=== PATIENT | female | born 1940 | race Caucasian/White ===

== ENCOUNTER 2021-11-14 11:18 | Inpatient (IN) | payer MEDICARE, OTHER ==
[~2021-11-14] VITALS: Ht 152.4 cm; Wt 75.0 kg
[~2021-11-14 11:18] MED LIST: ATEN25TA PO; CALC-793 PO; DOCU-28 PO; HYDR-3972 PO; IBUP-2417 PO; LEVO50TA8 PO; LOSA50TA3 PO; OMEP40CA21 PO; VITA400C21 PO; [UNRECOGNIZED DRUG - CODE] PO
[2021-11-14 12:55] LABS: BASOPHILS # (AUTO) 0.1 X10'3 (0-0.2); BASOPHILS % (AUTO) 0.7 % (0-1); EOSINOPHILS # (AUTO) 0.1 X10'3 (0-0.9); EOSINOPHILS % (AUTO) 1.4 % (0-6); HEMATOCRIT 42.8 % (35.0-45.0); HEMOGLOBIN 14.4 g/dl (12.0-16.0); LYMPHOCYTES # (AUTO) 1.9 X10'3 (1.1-4.8); LYMPHOCYTES % (AUTO) 20.5 % (21-51); MEAN CORPUSCULAR HEMOGLOBIN 30.1 PG (27.0-31.0); MEAN CORPUSCULAR HGB CONC 33.7 g/dL (33.0-36.5); MEAN CORPUSCULAR VOLUME 89.3 FL (78-98); MEAN PLATELET VOLUME 9.4 FL (7.4-10.4); MONOCYTES # (AUTO) 0.6 X10'3 (0-0.9); MONOCYTES % (AUTO) 6.4 % (2-12); NEUTROPHILS # (AUTO) 6.6 X10'3 (1.8-7.7); PLATELET COUNT 277 X10'3 (140-440); RED BLOOD COUNT 4.79 X10'6 (4.20-5.60); RED CELL DISTRIBUTION WIDTH 13.8 % (11.5-14.5); WHITE BLOOD COUNT 9.2 X10'3 (4.5-11.0)
[2021-11-14 13:01] LABS: ALANINE AMINOTRANSFERASE 24 U/L (12-78); ALBUMIN 3.4 G/DL (3.4-5.0); ALKALINE PHOSPHATASE 61 IU/L (46-116); ANION GAP 8 (8-16); ASPARTATE AMINO TRANSFERASE 22 U/L (10-37); BILIRUBIN,TOTAL 0.3 MG/DL (0.1-1.0); BLOOD UREA NITROGEN 14 MG/DL (7-18); BUN/CREATININE RATIO 16.3 (6.6-38.0); CALCIUM 9.4 MG/DL (8.5-10.1); CHLORIDE 103 MMOL/L (99-107); CREATININE 0.86 MG/DL (0.40-0.90); GLUCOSE 117 MG/DL (70-104); POTASSIUM 3.9 MMOL/L (3.5-5.1); SODIUM 141 MMOL/L (135-145); TOTAL CARBON DIOXIDE 29.7 MMOL/L (24-32); TOTAL PROTEIN 6.9 G/DL (6.4-8.2); eGFR 63 ML/MIN
[2021-11-14 13:16] LABS: CLARITY,URINE CLEAR (Clear); COLOR,URINE YELLOW (Yellow); GLUCOSE, URINE NEGATIVE (Neg); KETONES,URINE NEGATIVE (Neg); LEUKOCYTE ESTERASE ,URINE NEGATIVE (Neg); NITRITES, URINE NEGATIVE (Neg); OCCULT BLOOD,URINE TRACE-INTACT (Neg); PH,URINE 6.5 (4.8-8.0); PROTEIN,URINE NEGATIVE (Neg); UROBILINOGEN,URINE 0.2 E.U/dL (0.2-1.0)
[2021-11-14 13:20] LABS: UA COLLECTION TYPE NON-SPECIFIED; WBC,URINE NONE SEEN /HPF (0-4)
--- NOTE | 2021-11-14 13:20 | NUR ---
Patient given warm blanket; resting quietly.
[2021-11-14 13:21] LABS: BACTERIA,URINE NONE SEEN /HPF (Neg); MUCUS STRANDS FEW /LPF (Neg); RBC,URINE NONE SEEN /HPF (0-2); SQUAMOUS EPITHELIAL CELL,UR FEW /LPF (FEW)
[2021-11-14] MEDS ORDERED: HYDROcodone/acetaminophen 5mg/325mg tablet PO PRN (19:45)
[2021-11-14] MEDS ORDERED: potassium Cl 20 mEq SR tablet PO PRN ×2 (19:45)
[2021-11-14] MEDS ORDERED: bisacodyl 10mg suppository rectal RC PRN (19:45)
[2021-11-14] MEDS ORDERED: PERFLUTREN PROTEIN-A MICROSPHR (Optison) 0.22 MG/ML 3ML VIAL IV PRN (19:45)
[2021-11-14] MEDS ORDERED: magnesium 4gm in 100ml NS 100 ML IV PRN (19:45)
[2021-11-14] MEDS ORDERED: HYDROcodone/acetaminophen 10/325mg tab PO PRN (19:45)
[2021-11-14] MEDS ORDERED: potassium CL 10mEq/100ml bag 100 ML IV PRN (19:45)
[2021-11-14] MEDS ORDERED: ondansetron/PF 4mg/2ml inj IV PRN (19:45)
[2021-11-14] MEDS ORDERED: aspirin 325mg tablet PO ONE (19:45)
[2021-11-14] MEDS ORDERED: acetaminophen 325mg tablet PO PRN ×2 (19:45)
[2021-11-14] MEDS ORDERED: magnesium 2GM in 50ml NS 50 ML IV PRN (19:45)
[2021-11-14] MEDS ORDERED: morphine 2 MG/ML inj. syringe IV PRN ×2 (19:45)
[2021-11-14] MEDS ORDERED: mag hydrox/Alum hydrox/simeth 30ml oral suspension PO PRN (19:45)
[2021-11-14] MEDS ORDERED: magnesium hydroxide 30ml (MOM) UD suspension PO PRN (19:45)
[2021-11-14] MEDS ORDERED: acetaminophen 650mg rectal suppository RC PRN (19:45)
[2021-11-14] MEDS ORDERED: diphenhydrAMINE 25mg capsule PO PRN (19:45)
[2021-11-14] MEDS ORDERED: magnesium Cl slow-release 64mg tablet PO PRN (19:45)
[2021-11-14] MEDS ORDERED: OMEP40CA21 PO (19:51)
[2021-11-14] MEDS ORDERED: LEVO75TA7 PO (19:51)
[2021-11-14] MEDS ORDERED: LOSA50TA64 PO (19:51)
[2021-11-14] MEDS: K and/or MAG REPLACEMENT MC SCH (20:00)
[2021-11-14] MEDS: heparin, porcine 5000 units/ml vial SQ SCH (20:00)
[2021-11-14 20:11] LABS: HEMOGLOBIN A1C 5.5 % (4.5-6.2)
[2021-11-14 20:20] LABS: CHOLESTEROL 216 MG/DL (0-200); HDL CHOLESTEROL 36 MG/DL (35-60); LDL CHOLESTEROL 135 MG/DL (50-100); TRIGLYCERIDES 197 MG/DL (20-135)
[2021-11-14] MEDS: atorvastatin 20mg tablet PO SCH (22:13)
[2021-11-14] MEDS: docusate sod 100mg capsule PO SCH (22:14)
[2021-11-14] MEDS: normal saline 1000ml 1,000 ML IV SCH (22:14)
[2021-11-14] MEDS ORDERED: pantoprazole 40mg Tablet.DR PO SCH (23:45)
[2021-11-15] MEDS: normal saline 1000ml 1,000 ML IV SCH (05:45)
[2021-11-15 07:53] LABS: BASOPHILS # (AUTO) 0.1 X10'3 (0-0.2); EOSINOPHILS # (AUTO) 0.4 X10'3 (0-0.9); EOSINOPHILS % (AUTO) 3.6 % (0-6); HEMOGLOBIN 13.6 g/dl (12.0-16.0); LYMPHOCYTES # (AUTO) 2.3 X10'3 (1.1-4.8); LYMPHOCYTES % (AUTO) 20.2 % (21-51); MEAN CORPUSCULAR HEMOGLOBIN 29.6 PG (27.0-31.0); MEAN CORPUSCULAR HGB CONC 33.1 g/dL (33.0-36.5); MEAN CORPUSCULAR VOLUME 89.5 FL (78-98); MONOCYTES # (AUTO) 0.9 X10'3 (0-0.9); MONOCYTES % (AUTO) 8.1 % (2-12); NEUTROPHILS # (AUTO) 7.6 X10'3 (1.8-7.7); NEUTROPHILS % (AUTO) 67.1 % (42-75); PLATELET COUNT 246 X10'3 (140-440); RED BLOOD COUNT 4.58 X10'6 (4.20-5.60); RED CELL DISTRIBUTION WIDTH 13.7 % (11.5-14.5); WHITE BLOOD COUNT 11.3 X10'3 (4.5-11.0)
[2021-11-15] MEDS: K and/or MAG REPLACEMENT MC SCH (08:00)
[2021-11-15] MEDS ORDERED: losartan 50mg tablet PO SCH (08:00)
[2021-11-15] MEDS: heparin, porcine 5000 units/ml vial SQ SCH (08:00)
[2021-11-15] MEDS ORDERED: levoTHYROXINE 75mcg tablet PO SCH (08:00)
[2021-11-15] MEDS ORDERED: aspirin 81mg, enteric-coated 1 TAB TABLET.DR PO SCH (08:00)
[2021-11-15] MEDS: atorvastatin 20mg tablet PO SCH (08:13)
[2021-11-15] MEDS: docusate sod 100mg capsule PO SCH (08:13)
[2021-11-15 08:14] LABS: ALANINE AMINOTRANSFERASE 19 U/L (12-78); ALBUMIN 2.9 G/DL (3.4-5.0); ALBUMIN/GLOBULIN RATIO 0.9 (1.1-1.5); ALKALINE PHOSPHATASE 55 IU/L (46-116); ANION GAP 7 (8-16); ASPARTATE AMINO TRANSFERASE 17 U/L (10-37); BILIRUBIN,TOTAL 0.6 MG/DL (0.1-1.0); BLOOD UREA NITROGEN 11 MG/DL (7-18); BUN/CREATININE RATIO 13.3 (6.6-38.0); CALCIUM 8.7 MG/DL (8.5-10.1); CHLORIDE 108 MMOL/L (99-107); CREATININE 0.83 MG/DL (0.40-0.90); GLUCOSE 106 MG/DL (70-104); PHOSPHORUS 3.5 MG/DL (2.3-4.5); POTASSIUM 3.7 MMOL/L (3.5-5.1); SODIUM 143 MMOL/L (135-145); TOTAL CARBON DIOXIDE 28.3 MMOL/L (24-32); TOTAL PROTEIN 6.1 G/DL (6.4-8.2); eGFR 66 ML/MIN
[2021-11-15 11:00] VITALS: BP 146/89
[2021-11-15] MEDS ORDERED: RIVA20TA PO (14:41)
[2021-11-15] MEDS ORDERED: METO-395 PO (14:41)
[2021-11-15] MEDS ORDERED: ATOR20TA66 PO (14:41)
[2021-11-15] MEDS ORDERED: ASPI-1071 PO (14:41)
[2021-11-15] MEDS ORDERED: rivaroxaban 20mg tablet PO SCH (15:38)
== END 2021-11-15 16:15 | disposition home or self-care (01) | DRG 309 ==
LOC: ER 11:19 → ED HOLD 19:48
PROVIDERS: ADMIT Family Medicine; ATTEND Family Medicine
DX: R00.2 Palpitations (principal); I69.354 Hemiplegia and hemiparesis following cerebral infarction affecting left non-dominant side; E03.9 Hypothyroidism, unspecified; I10 Essential (primary) hypertension; I48.91 Unspecified atrial fibrillation; Z20.822 Contact with and (suspected) exposure to COVID-19; R29.703 NIHSS score 3; E05.90 Thyrotoxicosis, unspecified without thyrotoxic crisis or storm; G89.29 Other chronic pain; R07.89 Other chest pain; K21.9 Gastro-esophageal reflux disease without esophagitis; Z79.890 Hormone replacement therapy; Z79.899 Other long term (current) drug therapy; Z82.49 Family history of ischemic heart disease and other diseases of the circulatory system; Z90.710 Acquired absence of both cervix and uterus; Z79.82 Long term (current) use of aspirin; Z90.49 Acquired absence of other specified parts of digestive tract
CPT/HCPCS: 36415; 70450; 70544; 70551; 71045; 80053; 80061; 81001; 83036; 83735; 84100; 84443; 84484; 85025; 85651; 87635; 93005; 93306; 93880; 99285; C9803; G0378; J7030

== ENCOUNTER 2025-10-10 23:02 | Inpatient (IN) | payer MEDICARE, OTHER ==
[~2025-10-10] VITALS: Ht 152.4 cm; Wt 61.4 kg
[~2025-10-10 23:02] MED LIST changes: +AMLO10TA PO; +ASPI-1071 PO; -ATEN25TA PO; +Balance of Nature OP; -DOCU-28 PO; +GLUC-212 OP; -HYDR-3972 PO; -IBUP-2417 PO; -LEVO50TA8 PO; +LEVO75TA7 PO; +LOP12.5T PO; +LOSA-416 PO; -LOSA50TA3 PO; +MAGN500C4 PO; +NITR0.4T51 SL; -OMEP40CA21 PO; +PANT40TA54 PO; +ROSU20TA98 PO; +UBID50TA3 PO; +ZINC220T3 PO; -[UNRECOGNIZED DRUG - CODE] PO; +[UNRECOGNIZED DRUG - OTHER] PO; +tumeric OP
--- NOTE | 2025-10-10 23:14 | ELECTROCARDIOGRAPH REPORT ---
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 Zahra Javier Measurements Intervals [place] Rate: 97 P: 50 AL: 141 QRS: 10 QRSD: 77 T: 3 QT: 446 QTc: 567 Interpretive Statements Sinus rhythm Low voltage, precordial leads Consider anterior infarct Prolonged QT interval Baseline wander in lead(s) V6 Electronically Signed On 10-11-2025 1:27:[address] Zahra Javier Please click the below link to view image of tracing.
[2025-10-10 23:28] LABS: MEAN PLATELET VOLUME 8.8 FL (7.4-10.4); RED CELL DISTRIBUTION WIDTH 13.7 % (11.5-14.5)
[2025-10-10 23:41] LABS: CREATININE 0.84 MG/DL (0.40-0.90); TOTAL CARBON DIOXIDE 29.9 MMOL/L (24-32); eCRCL 34 ML/MIN; eGFR 64 ML/MIN
--- NOTE | 2025-10-10 23:44 | RADIOLOGY REPORT ---
CHEST RADIOGRAPH Indication: CP Technique: Single frontal view of the chest was obtained COMPARISON: DI CHEST,SINGLE VIEW on DOS: 03/02/25, CHEST,SINGLE VIEW on DOS: 11/14/21 FINDINGS: Lungs and pleural spaces are clear. Cardiac silhouette and gaston are within normal limits. Bones and soft tissues demonstrate no significant abnormality apart from a small to moderate hiatal hernia. IMPRESSION: No acute disease.
[2025-10-10 23:49] LABS: PRO BRAIN NATRIURETIC PEPTIDE 382 PG/ML (0-450)
[2025-10-11] VITALS (15 sets, daily range): BP systolic 110–163; BP diastolic 59–104; PULSE 62–96; RESP 11–18; TEMP 97–97.8; O2SAT 95–98
--- NOTE | 2025-10-11 00:40 | Physician Documentation ---
History of Present Illness ~ Chief Complaint: Chest Pain Stated Complaint: Chest Pain Time Seen by MD: 23:05 OK to notify your PCP?: Yes Primary Medical Doctor: None Source: patient, RN/MD, EMS, RN notes reviewed, EMS notes reviewed, old records Mode of Arrival: EMS Exam Limitations: no limitations HPI This pleasant patient woke up with some chest pain this morning over 12 hours ago feels like there is some pressure in the abdomen area chest area feels like she has been punched in the back. There is chest pain. She took nitroglycerin at the end of the day and her pain improved. She recently had multiple nosebleeds approximately three weeks ago and has stopped her anticoagulation. Patient was last admitted on 03/02 to 424 chest pain due to GERD. Patient had an extensive workup. She also has multiple risk factors. She has hyperlipidemia hypertension coronary artery disease status post cardiac stent in 2022 GERD currently patient is complaining of increasing fatigue and weakness as of late. During her last workup her Lexiscan revealed a fixed defect without any evidence of stress-induced ischemia she was given PPIs and was discharged to follow up with Dr. Cisneros for which she was compliant in later had her anticoagulation discontinued secondary to nosebleeds. Her last echocardiogram shows an ejection fraction of 65% on 02/2025 Medication Reconciliation Allergies: Coded Allergies: colchicine (Verified Allergy, Intermediate, 10/10/25) Penicillins (Verified Allergy, Mild, 10/10/25) Sulfa (Sulfonamide Antibiotics) (Verified Allergy, Mild, 10/10/25) Scheduled Amlodipine Besylate (Amlodipine Besylate), 1 TABLET PO DAILY Aspirin (Ecotrin*), 1 TAB PO DAILY Calcium Carbonate/Vitamin D3 (Vitamin D3 5,000 Unit Tablet), 1 TABLET PO DAILY, (Reported) Glucosam/Chondroit/C/Manganese (Cosamin Ds Capsule), 3 CAP OP DAILY, (Reported) Levothyroxine Sodium (Levothyroxine Sodium), 1 TAB PO DAILY, (Reported) Losartan* (Cozaar*), 25 MG PO DAILY Magnesium Oxide (Magnesium), 1 CAP PO DAILY, (Reported) Metoprolol Tartrate (Lopressor tablet), 1 TAB PO BID Pantoprazole Sodium (Pantoprazole Sodium), 40 MG PO DAILY Rosuvastatin Calcium (Rosuvastatin Calcium), 1 TAB PO DAILY, (Reported) Ubidecarenone (Coq10), 10 MG PO DAILY, (Reported) Vitamin E (Vitamin E), 400 UNIT PO DAILY, (Reported) Zinc Sulfate (Zinc), 1 TAB PO DAILY, (Reported) [Balance of Nature], 6 CAP OP DAILY, (Reported) [cologen-biotin], 10 MG PO DAILY, (Reported) [tumeric], 50 MG OP DAILY, (Reported) Scheduled PRN Nitroglycerin SL* (Nitrostat SL*), 0.4 MG SL Q5MIN PRN for chest pain Past Medical History Past Medical History: CVA/TIA/Stroke, Atrial Fibrillation, Hypertension, Hyperthyroidism, Chronic Pain Past Surgical History: noncontributory Patient History: (CABG) Coronary artery bypass grafting MOTHER, , Age: 60 years and older, Onset:60 years & older (PVD) Peripheral vascular disease MOTHER, , Age: 60 years and older Hypercholesterolemia MOTHER, , Age: 60 years and older No Family History of: (CAD) Coronary arteriosclerosis (CHF) Congestive heart failure (COPD) Chronic obstructive lung disease (CVA) Cerebrovascular accident (Cancer) Malignant carcinoid tumor (DM Type 2) Diabetes mellitus type 2 (DM Type1) Diabetes mellitus type 1 (NV) Myocardial infarction (TIA) Transient ischemic attack Alzheimer's disease Aortic aneurysm Asthma Cardiac arrest Alcohol Use: None Drug Use: none Lives In: Home Occupation: retired Review of Systems All Other Systems at this time: Reviewed and Negative Physical Exam Vital Signs: RN Vital Signs have been reviewed: Yes, Temperature: 98.1, Source: Oral, Heart Rate: 97, Respiratory Rate: 16, BP: 150/94, Pulse Oximetry: 96, Weight: 61.400 Physical Exam General: The patient is well developed, well nourished, nontoxic appearing and is in no acute distress. Skin: [place], warm and dry with no rashes. HEENT: Head was normocephalic and atraumatic. Eyes - pupils equal, round, reactive to light and accommodation. Extraocular movements were intact. Conjunctivae were nonicteric. The mouth and oropharynx were clear with moist mucous membranes. There were no pharyngeal exudates or erythema. Neck: Supple and nontender. There was no jugular venous distention, lymphadenopathy, thyromegaly or masses. Chest: Clear to auscultation bilaterally without wheezes, rales or rhonchi. No accessory muscle use. No dullness to percussion. Back: No midline tenderness Heart: Rate regular and rhythmic. S1, S2. No murmurs. Palpation of the chest wall was normal. No rubs or thrills. Abdomen: Soft, nontender and nondistended. Positive bowel sounds. No guarding or rebound. No hepatosplenomegaly or palpable masses. Extremities: No cyanosis, clubbing or edema. The patient moves all extremities. Pulses were equal and symmetric. Neurologic: Motor sensory grossly intact Psychologic: The patient was oriented to person, place and time. The patient demonstrated appropriate judgement and insight. Progress Progress Note 2:15 a.m. discussed the case with the hospitalist Results/Orders Reviewed/noted all lab results: Yes Results/Orders Orders - CANDELARIO FLOREZ MD Electrocardiogram (10/10/25 23:04) Chest,Single View (10/10/25 23:04) Saline Lock (10/10/25 23:04) Monitor (10/10/25 23:04) Oxygen (10/10/25 23:04) Hs Troponin I W Calculations (10/11/25 02:04) Page Hospitalist (10/11/25 01:58) Completed Orders - CANDELARIO FLOREZ MD Cbc/Diff (10/10/25 23:04) MG (10/10/25 23:04) Electrocardiogram (10/10/25 23:04) PBNP (10/10/25 23:04) Chest,Single View (10/10/25 23:04) BMP (10/10/25 23:04) Hs Troponin I W Calculations (10/10/25 23:04) Hs Troponin I W Calculations (10/11/25 01:04) Liver Panel (10/10/25 23:07) Aspirin 81mg Chew Tablet (Aspirin 81mg C (10/11/25 02:00) Nitroglycerin 0.2mg/Hour Patch (Nitro-Du (10/11/25 02:00) Medications Received in ER Medications (Trade) Dose Ordered Sig/Mateus Route PRN Reason Start Time Stop Time Status Last Admin Dose Admin (aspirin 81MG chew tablet) 324 mg ONCE ONCE PO 10/11/25 02:00 10/11/25 02:01 DC 10/11/25 02:06 324 MG (Nitro-Dur 0.2mg/ hour Patch) 1 patch ONCE ONCE TD 10/11/25 02:00 10/11/25 02:01 DC 10/11/25 02:08 1 PATCH Vital Signs 10/10/25 10/10/25 10/10/25 10/11/25 23:09 23:09 23:45 00:00 Temp 98.1 98.1 98.1 98.1 Pulse 93 97 71 69 Resp 12 16 14 12 B/P (MAP) 150/94 (112) 150/94 148/76 (100) 137/78 (97) Pulse Ox 97 96 97 97 10/11/25 10/11/25 10/11/25 00:30 01:00 01:48 Temp 98.1 98.1 98.1 Pulse 68 71 71 Resp 12 12 B/P (MAP) 123/74 (90) 133/84 (100) 144/78 (100) Pulse Ox 99 96 97 Laboratory Tests Test 10/10/25 23:18 10/11/25 01:26 White Blood Count 9.3 Red Blood Count 4.53 Hemoglobin 14.1 Hematocrit 39.8 Mean Corpuscular Volume 88.0 Mean Corpuscular Hemoglobin 31.0 Mean Corpuscular Hemoglobin Concent 35.3 Red Cell Distribution Width 13.7 Platelet Count 231 Mean Platelet Volume 8.8 Neutrophils (%) (Auto) 63.8 Lymphocytes (%) (Auto) 25.1 Monocytes (%) (Auto) 8.0 Eosinophils (%) (Auto) 2.0 Basophils (%) (Auto) 1.1 H Neutrophils # (Auto) 5.9 Lymphocytes # (Auto) 2.3 Monocytes # (Auto) 0.7 Eosinophils # (Auto) 0.2 Basophils # (Auto) 0.1 CBC Comment Sodium Level 139 Potassium Level 3.8 Chloride Level 102 Carbon Dioxide Level 29.9 Anion Gap 7 L Blood Urea Nitrogen 17 Creatinine 0.84 Estimated GFR/1.73 m2 64 BUN/Creatinine Ratio 20.2 H Glucose Level 103 Calcium Level 8.8 Magnesium Level 1.8 Total Bilirubin 0.3 Direct Bilirubin 0.1 Aspartate Amino Transf (AST/SGOT) 29 Alanine Aminotransferase (ALT/SGPT) 24 Alkaline Phosphatase 87 Troponin I High Sensitivity 5 5 Pro-B-Type Natriuretic Peptide 382 Total Protein 7.0 Albumin 3.5 Globulin 3.5 Albumin/Globulin Ratio 1.0 L Chemistry Comments Troponin I High Sens Percent Delta 0 Troponin I Hi Sens Absolute Change 0 Re-Evaluation Re-Evaluation : Re-Evaluation: Improved, Unchanged Progress Patient is still has some chest discomfort. Her blood pressure is a bit high. She continues to have chest pressure and some generalized fatigue and weakness. In February Lexiscan showed some defect that was not reversible. Family states he r last catheterization she had an 80% occlusion of a vessel that was not stented. Patient's laboratory work was obtained. And the CBC was within normal limits. No anemia no leukocytosis. Chemistries also within normal limits. LFTs as well magnesium within normal limits. EKG showed a prolonged QTC. Her 1st troponin is five her 2nd troponin he is unchanged however the patient was having some generalized weakness which is concerning for possible unstable angina equivalents patient states that she does have a coronary artery that was at 80% occlusion and never stented Cardiac continuous monitor interpretation shows normal sinus rhythm heart rate 90s, no ectopy, normal, my interpretation. Pulse oximetry monitor interpretation shows normal oxygenation at 98% room air, normal, my interpretation. 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 Candelario Florez Measurements Intervals [place] Rate: 97 P: 50 TN: 141 QRS: 10 QRSD: 77 T: 3 QT: 446 QTc: 567 Interpretive Statements Sinus rhythm Low voltage, precordial leads Consider anterior infarct Prolonged QT interval Baseline wander in lead(s) V6 Electronically Signed On 10-11-2025 1:27:[address] Candelario Florez Please click the below link to view image of tracing. EKG Date and Time:10/10/25 793 Chest X-Ray : Additional Comments CHEST RADIOGRAPH Indication: CP Technique: Single frontal view of the chest was obtained COMPARISON: DI CHEST,SINGLE VIEW on DOS: 03/02/25, CHEST,SINGLE VIEW on DOS: 11/14/21 FINDINGS: Lungs and pleural spaces are clear. Cardiac silhouette and gaston are within normal limits. Bones and soft tissues demonstrate no significant abnormality apart from a small to moderate hiatal hernia. IMPRESSION: No acute disease. Electronically Signed by:RONALDO JAMES MD Date & Time: 10/10/252341 Dictated by: RONALDO JAMES MD Dictation date and time: 10/10/252341 Heart Score: Heart Score Response (Comments) Value History Moderate Suspicious 1 EKG Repolarization Disturb 1 Age >65 2 Risk Factors >3 or Hx ASHD 2 Troponin Normal limit 0 Total 6 Medical Decision Making Additional information obtaine: old records Findings Unstable angina, chest pain due to GERD, back pain, dissection, non ST-elevation NV currently negative troponins were all considered Heart Score: 6 Differential Dx:Considerations: Include: angina, aortic dissection, chest wall pain, cholelithiasis, CHF, costochondritis, esophageal reflux/spasm, gastritis, herpes zoster, myocardial infarction, pericarditis, pleuritis, pancreatitis, pneumonia, pneumothorax, pulmonary embolus, other Departure Disposition: ADMITTED INPATIENT Admitted to Inpatient Unit: yes, to hospitalist Admission Level of Care: PCU with Tele Impression: Primary Impression: Unstable angina Additional Impression: Generalized weakness Condition: Fair Referrals: NO PRIMARY CARE PROVIDER (PCP) Education Educated: Patient Educated regarding: diagnosis, need for follow up, other Signature Scribe Signature: . Attestation: The note accurately reflects work and decisions made by me.Candelario Florez MD 10/11/25 00:40 CANDELARIO FLOREZ MD Oct 11, 2025 00:40
[2025-10-11] MEDS ORDERED: HYDROcodone/acetaminophen 10/325mg tab PO PRN (02:40)
[2025-10-11] MEDS ORDERED: potassium Cl 40MEQ/1/2NS 520ml 520 ML IV PRN (02:40)
[2025-10-11] MEDS ORDERED: magnesium hydroxide 30ml (MOM) UD suspension PO PRN (02:40)
[2025-10-11] MEDS ORDERED: magnesium sulf-water 2g/50mL 50 ML IV PRN (02:40)
[2025-10-11] MEDS ORDERED: mag hydrox/Alum hydrox/simeth 30ml oral suspension PO PRN (02:40)
[2025-10-11] MEDS ORDERED: potassium Cl 20 mEq SR tablet PO PRN ×2 (02:40)
[2025-10-11] MEDS ORDERED: magnesium sulf-water 4G/100mL 100 ML IV PRN (02:40)
[2025-10-11] MEDS ORDERED: magnesium Cl slow-release 64mg tablet PO PRN (02:40)
[2025-10-11] MEDS ORDERED: HYDROcodone/acetaminophen 5mg/325mg tablet PO PRN (02:40)
--- NOTE | 2025-10-11 02:56 | HISTORY AND PHYSICAL-Residence ---
History & Physical Providers to CC Resident Creating Document: ANDRACANDE MARQUES RES ~ History of Present Illness Primary Medical Doctor: None Reason for Admit\Complaint: CHEST PAIN History of Present Illness This is a 85 year old female with past medical history of hypertension, hyperlipidemia, GERD, CAD s/p stent placement in 2022 has come to the ED with complaints of chest pain. Patient reports that around 8:30 a.m. yesterday morning she experienced pain that started between her shoulder blades at the back and was radiating to the front, which woke her up from the sleep. Pressure kind of pain, radiating, 3/10 in intensity. Pain was constant and in the afternoon patient took 500 mg aspirin which kind of decreased her pain. In the night her blood pressure was high around 160/102 , she immediately took nitroglycerin which decreased her blood pressure immediately. Patient says that she had a couple of nosebleeds in the last few weeks, after which she stopped taking her blood thinners Plavix and aspirin. She denies any other complaints like shortness of breath, headache, nausea vomiting, lightheadedness, epigastric burning, reflux symptoms. Patient underwent Lexiscan and echocardiogram in February this year. Lexiscan was negative, echo showed ejection fraction of 65%. Allergies: Coded Allergies: colchicine (Verified Allergy, Intermediate, 10/10/25) Penicillins (Verified Allergy, Mild, 10/10/25) Sulfa (Sulfonamide Antibiotics) (Verified Allergy, Mild, 10/10/25) Home Medications Home Medications Active Pantoprazole Sodium 40 Mg Tablet.dr 40 Mg PO DAILY 30 Days Amlodipine Besylate 10 Mg Tablet 1 Tablet PO DAILY 30 Days Nitrostat SL* (Nitroglycerin) 0.4 Mg Tablet 0.4 Mg SL Q5MIN PRN 10 Days Repeat upto max 3 doses within 15 minutes Lopressor tablet (Metoprolol Tartrate) 25 Mg Tablet 1 Tab PO BID 90 Days Hold for SBP below 100mm Hg Hold for Heart Rate below 60. Cozaar* (Losartan Potassium) 50 Mg Tablet 25 Mg PO DAILY 90 Days Ecotrin* (Aspirin) 81 Mg Tablet.dr 1 Tab PO DAILY Reported [Balance of Nature] 6 Cap OP DAILY [cologen-biotin] 10 Mg PO DAILY Coq10 (Ubidecarenone) 50 Mg Tab.chew 10 Mg PO DAILY Magnesium (Magnesium Oxide) 500 Mg Capsule 1 Cap PO DAILY [tumeric] 50 Mg OP DAILY Cosamin Ds Capsule (Glucosam/Chondroit/C/Manganese) 500 Mg-400 Mg-2 Mg-0.33 Mg Capsule 3 Cap OP DAILY Zinc (Zinc Sulfate) 50 Mg Zinc (220 Mg) Tablet 1 Tab PO DAILY Rosuvastatin Calcium 20 Mg Tablet 1 Tab PO DAILY Levothyroxine Sodium 75 Mcg Tablet 1 Tab PO DAILY Vitamin D3 5,000 Unit Tablet (Calcium Carbonate/Vitamin D3) 1 Each Tablet 1 Tablet PO DAILY Vitamin E 400 Unit Capsule 400 Unit PO DAILY Past Medical History Past Medical History Hyperlipidemia Hypertension Hypothyroidism GERD Past Surgical History Surgical History Comment CAD s/p stent [place] [address] Cisneros Tonsillectomy Hysterectomy Cholecystectomy Family History Family History: (CABG) Coronary artery bypass grafting MOTHER, , Age: 60 years and older, Onset:60 years & older (PVD) Peripheral vascular disease MOTHER, , Age: 60 years and older Hypercholesterolemia MOTHER, , Age: 60 years and older No Family History of: (CAD) Coronary arteriosclerosis (CHF) Congestive heart failure (COPD) Chronic obstructive lung disease (CVA) Cerebrovascular accident (Cancer) Malignant carcinoid tumor (DM Type 2) Diabetes mellitus type 2 (DM Type1) Diabetes mellitus type 1 (SD) Myocardial infarction (TIA) Transient ischemic attack Alzheimer's disease Aortic aneurysm Asthma Cardiac arrest Past Social History Social History Comment Patient never smoked, no alcohol consumption No other illicit drug use Patient lives at home with her daughter PCP- Dr Duke Alcohol Use: None Drug Use: None Lives In: Home Occupation: retired ROS All Other Systems: Reviewed and Negative ROS Constitutional: Denies: no symptoms reported, Eyes: Denies: no symptoms reported ENT: Denies: no symptoms reported Respiratory: Denies: No symptoms reported Cardiovascular: Denies: Reports mild pressure-like pain in the chest Gastrointestinal: Denies: No symptoms reported Genitourinary: Denies: no symptoms reported Female Genitalia: Denies: no reported symptoms Neurological: Denies: no symptoms reported Musculoskeletal: Denies: no symptoms reported Endocrine: Denies: no symptoms reported Exam Vitals: Vital Signs Date Time Temp Pulse Resp B/P (MAP) Pulse Ox O2 Delivery O2 Flow Rate FiO2 10/11/25 01:48 98.1 71 144/78 (100) 97 10/11/25 01:00 12 General: General: Awake, alert, oriented, not in acute distress HEENT: Conjunctive are pink, sclerae clear, no icterus, Neck: Supple, no JVD, no lymphadenopathy. Chest: Normal vesicular breath sounds heard, no wheezing, crackles. Cardiovascular: S1-S2 heard no gallops, no rubs, no murmurs Abdomen: soft, no tenderness, no guarding, no rigidity, no rebound tenderness Extremities: No edema, no cyanosis, peripheral pulsations intact Central Nervous System: No focal neurological deficits Musculoskeletal: No joint swelling, deformities, inflammations, and no scoliosis and back tenderness Skin: Warm and dry. Diagnostic Data Last Recorded Lab Results: 10/11/25181410/11/251814 Advance Care Planning Advanced Care plannin - 30 Minutes (DNR) Additional Plan Chest pain Likely due to Unstable angina- heart score- 5 BARB score- 3 Patient experienced chest pain at rest, partial relief by aspirin. Patient currently stopped taking her blood thinners since a week due to repeated nosebleeds. Chest x-ray shows normal cardiac silhouette Troponins negative EKG sinus tachycardia, no acute ST elevations depressions T-wave inversions. Aspirin 324 mg was given once in the ED along with nitro patch. Starting patient on aspirin 81 mg daily, rosuvastatin and metoprolol. Her last echocardiogram shows an ejection fraction of 65% on 02/2025 Her last Lexiscan was done in February 2025 that showed no definite evidence for stress-induced ischemia Patient on telemetry monitoring Consult Cardiology in the a.m. Hypertension- Current blood pressure 144/78 Patient on metoprolol Hyperlipidemia- Lipid panel ordered follow-up Patient on rosuvastatin 20 mg GERD- Patient currently denies any reflux symptoms, epigastric burning. Patient on pantoprazole 40 mg Hypothyroidism- Patient on levothyroxine 75 mcg Disposition- please consult Cardiology in the a.m. for possible Lexiscan. Code status: DNR DVT profile: Subcu Heparin Diet: Heart healthy Cande Reddivari PGY-1 Date of Service: Oct 11, 2025 Billing Provider: VINCENZO ABRAHAM MD Addendum Attestation I agree with the residents assessment and plan as below: 85 year old female with htn and CAD s/p PCI in 2022 admitted with chest pain Plan: restart asa after load telemonitoring consider repeat lexiscan high dose statin restart metoprolol at home dose CCT 57 min using HIPPA compliant A/V technology CANDE FU, RES Oct 11, 2025 02:56 VINCENZO ABRAHAM MD Oct 11, 2025 18:50
[2025-10-11] MEDS ORDERED: LOSA-415 PO (03:44)
[2025-10-11] MEDS ORDERED: AZIT500T18 PO (04:01)
[2025-10-11] MEDS: levoTHYROXINE 75mcg tablet PO SCH (07:49)
[2025-10-11] MEDS: metoprolol tartrate 12.5mg (1/2 tablet) PO SCH (07:50)
[2025-10-11] MEDS ORDERED: aspirin 81mg, enteric-coated 1 TAB TABLET.DR PO SCH ×2 (08:00→21:00)
[2025-10-11] MEDS: K and/or MAG REPLACEMENT MC SCH (08:00)
[2025-10-11] MEDS: heparin, porcine 5000 units/ml vial SQ SCH (08:00)
[2025-10-11] MEDS: pantoprazole 40mg Tablet.DR PO SCH (08:00)
[2025-10-11] MEDS: docusate sod 100mg capsule PO SCH (08:00)
[2025-10-11 10:39] LABS: LEUKOCYTE ESTERASE ,URINE NEGATIVE (Neg); NITRITES, URINE NEGATIVE (Neg); OCCULT BLOOD,URINE SMALL (Neg)
[2025-10-11 10:47] LABS: UA COLLECTION TYPE VOIDED
[2025-10-11 10:48] LABS: HYALINE CASTS 0-3 /LPF (NEGATIVE); MUCUS STRANDS FEW /LPF (Neg); SQUAMOUS EPITHELIAL CELL,UR FEW /LPF (FEW)
[2025-10-11] MEDS ORDERED: metoprolol tartrate 1mg/ml inj IV PRN (11:30)
[2025-10-11] MEDS: regadenoson 0.4mg/5ml syringe IV PRN (15:05)
[2025-10-11] MEDS: aminophylline 250mg/10ml inj. IV PRN (15:39)
[2025-10-11] MEDS: ondansetron/PF 4mg/2ml inj IV PRN (15:41)
--- NOTE | 2025-10-11 16:08 | PROGRESS NOTE ---
Daily Progress Note Providers to CC ~ Antibiotic Timeout Antibiotic Ordered?: No Subjective Patient complains of interscapular pain. Objective Vital Signs Date Time Temp Pulse Resp B/P (MAP) Pulse Ox O2 Delivery O2 Flow Rate FiO2 10/11/25 11:14 97.2 96 15 110/59 (76) 96 Room Air Result Diagram: 10/10/25 2318 10/11/25 0554 Gen. awake alert oriented asymptomatic HEENT: Normocephalic, atraumatic, extraocular movements are intact, sclera anicteric, conjunctiva pinkish, moist oral mucosa, no rash or ulcers. NECK: Supple, no JVD, trachea midline. CHEST: Clear to auscultation, no wheezes crackles or rhonchi. HEART: Regular rate rhythm, no murmur gallop or rub. ABDOMEN: Soft, nontender, no organomegaly. EXTREMITIES: No cyanosis clubbing or edema. NEURO EXAM: Grossly nonfocal. MUSCULOSKELETAL : No joint swelling or deformities. SKIN: No rash or ulcers noted. Other Results Medications reviewed Problem\Assessment\Plan 85 years old female presented to the ER for evaluation of chest pain #chest pain: ACS ruled out. Patient has a history of CAD. Troponin is negative. We will check Lexiscan. Continue aspirin in the meantime. #hypertension: Continue metoprolol # hyperlipidemia: Continue atorvastatin #GERD : Continue Protonix # hypothyroidism: Continue levothyroxine # code status: DNR. Date of Service: Oct 11, 2025 Billing Provider: BETH MONTGOMERY MD Common Visit Codes: [id number] INP/OBS CARE(HIGH) BETH MONTGOMERY MD Oct 11, 2025 16:08
--- NOTE | 2025-10-11 16:24 | RADIOLOGY REPORT ---
Procedure: IN NM ARNOLDO SCAN Exam Date: 10/11/2025 02:23 PM Reason for study/Clinical History: cp Comparison Study: [facility] ARNOLDO SCAN on DOS: 03/03/25 Myocardial Perfusion Study with SPECT Technique: The patient received an intravenous injection of 8.2 mCi of technetium-99m sestamibi while at rest. After a short delay, SPECT tomographic images of the heart were obtained. The patient then went to the stress lab where they received an intravenous infusion of 0.[address] andard protocol. 34 mCi of technetium-99m sestamibi was injected intravenously immediately after the start of the lexiscan infusion. Gated SPECT tomographic images of the heart were acquired and processed. Findings: No reversible perfusion defect. End diastolic volume: 33 mL End systolic volume: 7 mL The left ventricular ejection fraction is 79 %. (normal greater than 50%) Impression: No reversible defect. The left ventricular ejection fraction is 79 %.
[2025-10-11 18:29] LABS: MEAN PLATELET VOLUME 8.4 FL (7.4-10.4); RED CELL DISTRIBUTION WIDTH 14.0 % (11.5-14.5)
[2025-10-11 18:41] LABS: CREATININE 0.88 MG/DL (0.40-0.90); TOTAL CARBON DIOXIDE 31.6 MMOL/L (24-32); eCRCL 32 ML/MIN; eGFR 61 ML/MIN
[2025-10-14] MEDS ORDERED: METO25TA6 PO (07:15)
[2025-10-14] MEDS ORDERED: ATOR20TA66 PO (10:08)
== END 2025-10-11 20:30 | disposition home or self-care (01) | DRG 313 ==
LOC: ER 23:04 → ED HOLD 10-11 02:48 → PCU 3S 10-11 04:03
PROVIDERS: ADMIT Internal Medicine; ATTEND Internal Medicine
PROC: 4A02XM4 Measurement of Cardiac Total Activity, External Approach (ICD-10-PCS; principal; 2025-10-11)
PROC: 3E033HZ Introduction of Radioactive Substance into Peripheral Vein, Percutaneous Approach (ICD-10-PCS; 2025-10-11)
DX: R07.9 Chest pain, unspecified (principal); Z66 Do not resuscitate; E78.00 Pure hypercholesterolemia, unspecified; I10 Essential (primary) hypertension; K21.9 Gastro-esophageal reflux disease without esophagitis; I48.91 Unspecified atrial fibrillation; Z95.1 Presence of aortocoronary bypass graft; Z86.73 Personal history of transient ischemic attack (TIA), and cerebral infarction without residual deficits; Z88.0 Allergy status to penicillin; Z88.2 Allergy status to sulfonamides; Z88.8 Allergy status to other drugs, medicaments and biological substances; Z79.82 Long term (current) use of aspirin; Z79.899 Other long term (current) drug therapy; Z90.49 Acquired absence of other specified parts of digestive tract; Z90.710 Acquired absence of both cervix and uterus
CPT/HCPCS: 36415; 71045; 78452; 80048; 80076; 81001; 83036; 83735; 83880; 84132; 84484; 85025; 87081; 93005; 93017; 99285; A9500; G0378; J0280; J2405; J2785